=== PATIENT | male | born 1960 | race Caucasian/White ===

== ENCOUNTER 2024-02-02 23:24 | Inpatient (IN) | payer OTHER ==
[~2024-02-02] VITALS: Ht 177.8 cm; Wt 133.4 kg
[~2024-02-02 23:24] MED LIST: ALBU6.7H15 INH; AMIO100T4 PO; ASPI-1406 PO; EMPA25TA PO; FURO-151 PO; LEVE750T10 PO; LISI10TA26 PO; LOSA50TA41 PO; METO25TA6 PO; PULM50 NEB
[2024-02-02] MEDS: MORPHINE SULFATE 4 MG/ML INJ (FOR IV/IM USE) IV STA (23:30)
[2024-02-02 23:31] VITALS: RESP 36
[2024-02-02 23:58] LABS: HEMATOCRIT. 45.6 % (42.0-52.0); HEMOGLOBIN. 14.9 g/dL (14.0-18.0); MEAN CORPUSCULAR HEMOGLOBIN 28.7 pg (28.0-32.0); MEAN CORPUSCULAR HGB CONC 32.6 g/dL (31.0-37.0); MEAN CORPUSCULAR VOLUME 88.2 fL (80.0-94.0); MEAN PLATELET VOLUME 7.6 fl (7.4-10.4); PLATELET 245 x1000/uL (130-400); RED BLOOD CELL COUNT 5.17 mill/uL (4.7-6.1); RED CELL DISTRIBUTION WIDTH 18.8 % (11.6-14.6); WHITE BLOOD COUNT 20.2 x1000/uL (4.5-11.0)
[2024-02-03] VITALS (59 sets, daily range): BP systolic 80–159; BP diastolic 51–138; PULSE 113–128; RESP 16–36; TEMP 96–98; O2SAT 95
[2024-02-03 00:05] LABS: DIFFERENTIAL COMMENT 1
[2024-02-03 00:07] LABS: CHLORIDE 93 mEq/L (98-107); POTASSIUM 5.3 mEq/L (3.5-5.1); SODIUM 121 mEq/L (136-145)
[2024-02-03 00:08] LABS: CARBON DIOXIDE 16 mEq/L (21-32)
[2024-02-03 00:11] LABS: INR 1.8; PROTHROMBIN TIME 19.7 sec (9.6-11.0)
[2024-02-03] MEDS: SODIUM CHLORIDE 0.9% 500 ML IV ONE (00:11)
[2024-02-03] MEDS: ONDANSETRON HCL 4MG/2ML INJ IV STA (00:12)
[2024-02-03 00:13] LABS: CREATININE 1.8 mg/dL (0.6-1.3); GLUCOSE 86 mg/dL (70-105); UREA NITROGEN BLOOD 29 mg/dL (9-23)
[2024-02-03 00:19] LABS: LACTIC ACID 6.6 mmol/L (0.4-2.0)
[2024-02-03 00:20] LABS: TROPONIN I HIGH SENSITIVITY 100 ng/L (3.0-53)
[2024-02-03] MEDS: NOREPINEPHRINE 8MG/250ML PMX 250 ML IV STA (00:54)
[2024-02-03] MEDS: PIPERACILLIN/TAZO 3.375G/50ML 50 ML IV NR (00:55)
[2024-02-03] MEDS: VANCOMYCIN 1G PREMIX 200 ML IV NR (01:01)
[2024-02-03 03:27] LABS: TROPONIN I HIGH SENSITIVITY 91 ng/L (3.0-53)
[2024-02-03 03:49] LABS: NUCLEATED RED BLOOD CELLS 1 /100 WBC; PLATELET ESTIMATE NORMAL
[2024-02-03] MEDS ORDERED: NOREPINEPHRINE 8MG/250ML PMX 250 ML IV ONE (04:45)
[2024-02-03 09:44] LABS: HEMATOCRIT. 50.9 % (42.0-52.0); HEMOGLOBIN. 16.1 g/dL (14.0-18.0); MEAN CORPUSCULAR HEMOGLOBIN 28.3 pg (28.0-32.0); MEAN CORPUSCULAR HGB CONC 31.6 g/dL (31.0-37.0); MEAN CORPUSCULAR VOLUME 89.5 fL (80.0-94.0); MEAN PLATELET VOLUME 7.5 fl (7.4-10.4); PLATELET 191 x1000/uL (130-400); RED BLOOD CELL COUNT 5.69 mill/uL (4.7-6.1); RED CELL DISTRIBUTION WIDTH 19.3 % (11.6-14.6); WHITE BLOOD COUNT 25.7 x1000/uL (4.5-11.0)
[2024-02-03] MEDS: NOREPINEPHRINE 8MG/250ML PMX 250 ML IV PRN (09:44)
[2024-02-03 09:46] LABS: DIFFERENTIAL COMMENT 1
[2024-02-03 10:57] LABS: BG BASE EXCESS -15.4 mmol/L (-2.0-2.0); BG CARBOXYHEMOGLOBIN 0.5 % (0.5-1.5); BG DEOXYHEMOGLOBIN 0.5 % (0.0-5.0); BG FRACTION INSPIRED OXYGEN 50; BG HCO3 ACT 8.5 mmol/L (22.0-26.0); BG METHEMOGLOBIN 0.3 % (0.0-1.5); BG OXYGEN SATURATION 99.5 % (92.0-98.5); BG OXYHEMOGLOBIN 98.7 % (94.0-97.0); BG PCO2 18.7 mmHg (35.0-45.0); BG PH 7.277 (7.350-7.450); BG PO2 196.2 mmHg (75.0-100.0); BG SAMPLE SITE LEFT BRACHIAL; BG TOTAL HEMOGLOBIN 16.7 g/dL (12.0-18.0); BG VENT MODE MASK - BIPAP
[2024-02-03] MEDS ORDERED: SODIUM POLYSTYRENE SULFONATE 15 G/60 ML BOT PO ONE (11:15)
[2024-02-03 11:18] LABS: ANISOCYTOSIS 2+; PLATELET ESTIMATE NORMAL
[2024-02-03] MEDS: FUROSEMIDE 40MG/4ML VIAL IVP SCH (11:30)
[2024-02-03] MEDS: SODIUM BICARBONATE 8.4% 50MEQ/50ML SYR IV NR ×2 (11:31→15:55)
[2024-02-03] MEDS ORDERED: ONDANSETRON HCL 4MG/2ML INJ IV PRN (11:45)
[2024-02-03] MEDS ORDERED: CLONIDINE 0.1MG TABLET PO PRN (11:45)
[2024-02-03] MEDS ORDERED: DOCUSATE SODIUM 100MG CAPSULE PO PRN (11:45)
[2024-02-03] MEDS: SODIUM ZIRCONIUM CYCLOSILICATE 10GM/PACKET PO NR (12:00)
[2024-02-03] MEDS ORDERED: SODIUM CHLORIDE 0.9% 250 ML IV NR (12:00)
[2024-02-03] MEDS: INSULIN LISPRO 100 UNITS/ML SUBCUT SCH (12:22)
[2024-02-03] MEDS: BLOOD SUGAR DIAGNOSTIC STRIP TEST SCH (12:38)
[2024-02-03] MEDS: DEXTROSE 50% WATER 50ML SYRINGE IV PRN (12:56)
[2024-02-03] MEDS: PIPERACILLIN/TAZO 3.375G/50ML 50 ML IV SCH (13:33)
[2024-02-03] MEDS: MAGNESIUM 2 G PREMIX 50 ML IV SCH (14:42)
[2024-02-03] MEDS ORDERED: SODIUM BICARBONATE 8.4% 50MEQ/50ML SYR IV NR (14:45)
[2024-02-03 15:17] LABS: T4 FREE 1.19 ng/dL (0.89-1.76)
[2024-02-03 15:18] LABS: THYROID STIMULATING HORMONE 7.07 uIU/mL (0.55-4.78)
[2024-02-03 15:48] LABS: CHLORIDE 93 mEq/L (98-107); POTASSIUM 5.3 mEq/L (3.5-5.1); SODIUM 122 mEq/L (136-145)
[2024-02-03 15:49] LABS: CARBON DIOXIDE 12 mEq/L (21-32)
[2024-02-03 15:50] LABS: CALCIUM 8.7 mg/dL (8.7-10.4)
[2024-02-03 15:54] LABS: GLUCOSE 71 mg/dL (70-105)
[2024-02-03 15:55] LABS: UREA NITROGEN BLOOD 28 mg/dL (9-23)
[2024-02-03] MEDS: METHYLPREDNISOLONE SOD SUCC 40MG/ML (ACT-O-VIAL) IV SCH (15:55)
[2024-02-03] MEDS: ALBUMIN HUMAN 25GM/100ML (25%) IV NR (15:55)
[2024-02-03 15:56] LABS: ALANINE AMINOTRANSFERASE 47 IU/L (10-49); ALBUMIN 2.7 g/dL (3.2-4.8); ASPARTATE AMINOTRANSFERASE 109 IU/L (<34)
[2024-02-03 15:57] LABS: BILIRUBIN TOTAL 3.4 mg/dL (0.1-1.0); PHOSPHORUS 6.4 mg/dL (2.5-4.9); PROTEIN TOTAL 5.7 g/dL (6.0-8.3)
[2024-02-03 15:59] LABS: TROPONIN I HIGH SENSITIVITY 71 ng/L (3.0-53)
[2024-02-03 19:21] LABS: CLARITY URINE CLEAR (CLEAR); COLOR URINE YELLOW (YELLOW); GLUCOSE URINE 1+ (NEGATIVE); KETONES URINE NEGATIVE (NEGATIVE); LEUKOCYTE ESTERASE URINE NEGATIVE (NEGATIVE); NITRITE URINE NEGATIVE (NEGATIVE); OCCULT BLOOD URINE 1+ (NEGATIVE); PROTEIN URINE NEGATIVE (NEGATIVE); SPECIFIC GRAVITY URINE 1.008 (1.005-1.030); UROBILINOGEN URINE 0.2 E.U./dL (0.2-1.0)
[2024-02-03 19:38] LABS: *AMPHETAMINES SCREEN URINE PRESUMPTIVE POSITIVE (NEGATIVE); *BARBITURATES SCREEN URINE NEGATIVE (NEGATIVE); *BENZODIAZEPINES SCREEN URINE NEGATIVE (NEGATIVE)
[2024-02-03 19:39] LABS: *COCAINE SCREEN URINE NEGATIVE (NEGATIVE); CANNABINOID URINE SCREEN NEGATIVE (NEGATIVE); METHADONE URINE SCREEN NEGATIVE (NEGATIVE); OPIATES URINE SCREEN PRESUMPTIVE POSITIVE (NEGATIVE); PHENCYCLIDINE URINE SCREEN NEGATIVE (NEGATIVE)
[2024-02-03 19:43] LABS: BACTERIA URINE NONE SEEN; RBC URINE 0-2 /hpf (0-2); SQUAMOUS EPITHELIAL CELL URINE RARE /lpf (RARE/1+); WBC URINE NONE SEEN /hpf (0-2)
[2024-02-03] MEDS: ACETAMINOPHEN 325MG TABLET PO PRN (19:53)
[2024-02-03] MEDS: DOXYCYCLINE HYCLATE 100MG CAPSULE PO SCH (20:40)
[2024-02-03] MEDS: GUAIFENESIN 600MG ER TABLET PO SCH (21:06)
[2024-02-03] MEDS: IPRATROPIUM/ALBUTEROL 0.5-3(2.5)MG/3ML NEB HHN SCH (21:07)
[2024-02-03] MEDS: ACETYLCYSTEINE 200MG/ML 20% VIAL 4ML INH SCH (22:00)
[2024-02-03] MEDS: METHYLPREDNISOLONE SOD SUCC 125MG/2ML (ACT-O-VIAL) IV SCH (22:06)
[2024-02-03 22:29] LABS: CREATINE KINASE MB FRACTION 13.5 ng/mL (0.5-3.6)
[2024-02-03] MEDS: ZOLPIDEM TARTRATE 5MG TABLET PO PRN (22:40)
[2024-02-04] VITALS (101 sets, daily range): BP systolic 66–124; BP diastolic 30–89; PULSE 0–124; RESP 0–30; TEMP 97.8–98.8; O2SAT 95–98
[2024-02-04] MEDS: VANCOMYCIN 750MG/150ML (BAXTER) IV SCH (01:29)
[2024-02-04 05:11] LABS: HEMATOCRIT. 46.5 % (42.0-52.0); HEMOGLOBIN. 15.4 g/dL (14.0-18.0); MEAN CORPUSCULAR HEMOGLOBIN 27.9 pg (28.0-32.0); MEAN CORPUSCULAR HGB CONC 33.2 g/dL (31.0-37.0); MEAN CORPUSCULAR VOLUME 84.1 fL (80.0-94.0); MEAN PLATELET VOLUME 7.8 fl (7.4-10.4); PLATELET 164 x1000/uL (130-400); RED BLOOD CELL COUNT 5.53 mill/uL (4.7-6.1); RED CELL DISTRIBUTION WIDTH 18.5 % (11.6-14.6)
[2024-02-04 05:25] LABS: CARBON DIOXIDE 19 mEq/L (21-32); CHLORIDE 95 mEq/L (98-107); POTASSIUM 4.8 mEq/L (3.5-5.1); SODIUM 126 mEq/L (136-145)
[2024-02-04 05:26] LABS: CALCIUM 8.4 mg/dL (8.7-10.4)
[2024-02-04 05:31] LABS: CREATININE 1.7 mg/dL (0.6-1.3); GLUCOSE 140 mg/dL (70-105); UREA NITROGEN BLOOD 31 mg/dL (9-23)
[2024-02-04 05:32] LABS: ALANINE AMINOTRANSFERASE 48 IU/L (10-49); ASPARTATE AMINOTRANSFERASE 120 IU/L (<34)
[2024-02-04 05:33] LABS: ALBUMIN 2.5 g/dL (3.2-4.8); BILIRUBIN DIRECT 2.8 mg/dL (<=3.0); BILIRUBIN TOTAL 3.8 mg/dL (0.1-1.0); PHOSPHORUS 4.8 mg/dL (2.5-4.9); PROTEIN TOTAL 4.9 g/dL (6.0-8.3)
[2024-02-04 05:38] LABS: INR 2.1
[2024-02-04 07:07] LABS: DIFFERENTIAL COMMENT 1
[2024-02-04] MEDS ORDERED: LIDOCAINE HCL 1% 10 MG/ML 10ML VIAL ONE (07:19)
[2024-02-04] MEDS: LORAZEPAM 2MG/ML INJ IV NR (07:42)
[2024-02-04] MEDS ORDERED: HEPARIN 5000 UNITS/ML VIAL IV SCH (08:00)
[2024-02-04] MEDS ORDERED: HEPARIN 5000 UNITS/ML VIAL IV PRN ×2 (08:00)
[2024-02-04 08:19] LABS: PARTIAL THROMBOPLASTIN TIME 39.2 sec (23.4-31.0)
[2024-02-04] MEDS: DEXMEDETOMIDINE 400 MCG/100 ML 100 ML IV PRN (08:26)
[2024-02-04] MEDS: HEPARIN 25,000 UNITS PREMIX 250 ML IV SCH (09:54)
[2024-02-04 12:07] LABS: ANISOCYTOSIS 2+; PLATELET ESTIMATE NORMAL
[2024-02-04] MEDS: CHLORHEXIDINE GLUCONATE 4% EXTERNAL USE TOP SCH (13:54)
[2024-02-04] MEDS: NOREPINEPHRINE 8MG/250ML PMX 250 ML IV PRN (20:53)
[2024-02-04] MEDS: VANCOMYCIN 1GM/200ML PMX (BAXTER) IV SCH (22:14)
[2024-02-05] VITALS (103 sets, daily range): BP systolic 83–150; BP diastolic 39–101; PULSE 99–140; RESP 16–37; TEMP 98.5–100.8; O2SAT 96
[2024-02-05 05:38] LABS: CREATININE 1.7 mg/dL (0.6-1.3)
[2024-02-05 10:51] LABS: INR 1.4; PROTHROMBIN TIME 15.4 sec (9.6-11.0)
[2024-02-05 14:11] LABS: HEMATOCRIT 46.7 % (42.0-52.0); HEMOGLOBIN 14.8 g/dL (14.0-18.0); MEAN CORPUSCULAR HEMOGLOBIN 27.4 pg (28.0-32.0); MEAN CORPUSCULAR HGB CONC 31.7 g/dL (31.0-37.0); MEAN CORPUSCULAR VOLUME 86.3 fL (80.0-94.0); PLATELET 103 x1000/uL (130-400); RED BLOOD CELL COUNT 5.41 mill/uL (4.7-6.1); RED CELL DISTRIBUTION WIDTH 18.4 % (11.6-14.6)
[2024-02-05] MEDS: METHYLPREDNISOLONE SOD SUCC 40MG/ML (ACT-O-VIAL) IV SCH (14:40)
[2024-02-05] MEDS: PHENYLEPHRINE 100 MG in DEXT 5% WATER 240 ML IV PRN (17:21)
[2024-02-05] MEDS: ENOXAPARIN 30MG/0.3ML SYR SUBCUT SCH (21:30)
[2024-02-05] MEDS: VANCOMYCIN 1.25GM PMX (XELLIA) 250 ML IV SCH (21:31)
[2024-02-05] MEDS: LORAZEPAM 2MG/ML INJ IV PRN (22:00)
[2024-02-06] VITALS (110 sets, daily range): BP systolic 73–116; BP diastolic 24–92; PULSE 96–177; RESP 15–44; TEMP 98–99.1; O2SAT 93–98
[2024-02-06 05:01] LABS: ALBUMIN 2.4 g/dL (3.2-4.8)
[2024-02-06 05:07] LABS: PREALBUMIN < 5.0 mg/dl (10.0-40.0)
[2024-02-06] MEDS ORDERED: SODIUM CHLORIDE 0.9% 1,000 ML IV SCH ×2 (06:11→06:15)
[2024-02-06] MEDS: DILTIAZEM HCL 5MG/ML 5ML VIAL IV NR (06:15)
[2024-02-06] MEDS: SODIUM CHLORIDE 0.9% 500 ML IV ONE (06:26)
[2024-02-06] MEDS ORDERED: LIDOCAINE HCL 1% 10 MG/ML 10ML VIAL ONE (09:18)
[2024-02-06 11:33] LABS: HEMATOCRIT 44.1 % (42.0-52.0); HEMOGLOBIN 13.5 g/dL (14.0-18.0); MEAN CORPUSCULAR HGB CONC 30.6 g/dL (31.0-37.0); MEAN CORPUSCULAR VOLUME 88.3 fL (80.0-94.0); PLATELET 82 x1000/uL (130-400); RED BLOOD CELL COUNT 4.99 mill/uL (4.7-6.1); RED CELL DISTRIBUTION WIDTH 18.9 % (11.6-14.6); WHITE BLOOD COUNT 18.7 x1000/uL (4.5-11.0)
[2024-02-06 11:44] LABS: CHLORIDE 98 mEq/L (98-107); POTASSIUM 4.7 mEq/L (3.5-5.1); SODIUM 130 mEq/L (136-145)
[2024-02-06 11:45] LABS: CALCIUM 8.6 mg/dL (8.7-10.4); CARBON DIOXIDE 21 mEq/L (21-32)
[2024-02-06] MEDS ORDERED: FURO40TA5 PO (11:47)
[2024-02-06] MEDS ORDERED: ATOR20TA65 PO (11:47)
[2024-02-06] MEDS ORDERED: CARV6.2548 PO (11:47)
[2024-02-06] MEDS ORDERED: APIX5TAB PO (11:47)
[2024-02-06] MEDS ORDERED: CLOP75TA33 PO (11:47)
[2024-02-06] MEDS ORDERED: FLUO40CA49 PO (11:47)
[2024-02-06] MEDS ORDERED: METO2.5T2 PO (11:47)
[2024-02-06] MEDS ORDERED: PALI156D IM (11:47)
[2024-02-06 11:50] LABS: CREATININE 1.9 mg/dL (0.6-1.3); GLUCOSE 235 mg/dL (70-105); UREA NITROGEN BLOOD 48 mg/dL (9-23)
[2024-02-06 11:53] LABS: PHOSPHORUS 4.1 mg/dL (2.5-4.9)
[2024-02-06] MEDS: DOXYCYCLINE 100MG/100ML 100 ML IV SCH (17:19)
[2024-02-06] MEDS: METHYLPREDNISOLONE SOD SUCC 40MG/ML (ACT-O-VIAL) IV SCH (21:19)
[2024-02-06] MEDS: CEFEPIME 2GM/100ML 100 ML IV SCH (21:20)
[2024-02-06] MEDS: MORPHINE SULFATE 4 MG/ML INJ (FOR IV/IM USE) IV PRN (23:55)
[2024-02-07] VITALS (87 sets, daily range): BP systolic 54–113; BP diastolic 37–92; PULSE 98–140; RESP 13–41; TEMP 98.8–103; O2SAT 95–98
[2024-02-07 05:46] LABS: CALCIUM 8.3 mg/dL (8.7-10.4); HEMATOCRIT 42.5 % (42.0-52.0); HEMOGLOBIN 13.4 g/dL (14.0-18.0); MEAN CORPUSCULAR HEMOGLOBIN 27.4 pg (28.0-32.0); MEAN CORPUSCULAR HGB CONC 31.6 g/dL (31.0-37.0); MEAN CORPUSCULAR VOLUME 86.7 fL (80.0-94.0); PLATELET 77 x1000/uL (130-400); RED CELL DISTRIBUTION WIDTH 18.8 % (11.6-14.6); WHITE BLOOD COUNT 8.8 x1000/uL (4.5-11.0)
[2024-02-07] MEDS ORDERED: IPRATROPIUM/ALBUTEROL 0.5-3(2.5)MG/3ML NEB HHN PRN (11:00)
[2024-02-07] MEDS ORDERED: NALOXONE HCL 0.4MG/ML VIAL IV PRN (11:00)
[2024-02-07] MEDS: AMIODARONE HCL 900 MG in DEXT 5% WATER 482 ML IV SCH (16:32)
[2024-02-07] MEDS: ACETAMINOPHEN 325MG TABLET PO PRN (18:03)
[2024-02-07] MEDS: CEFEPIME 2GM/100ML 100 ML IV SCH (18:04)
[2024-02-07] MEDS: VASOPRESSIN 20 UNIT in SODIUM CHLORIDE 0.9% 99 ML IV PRN (20:46)
[2024-02-07] MEDS: NOREPINEPHRINE 32 MG in DEXT 5% WATER 218 ML IV PRN (22:06)
[2024-02-07] MEDS: MEROPENEM 1G/100ML 100 ML IV SCH (22:20)
[2024-02-08] VITALS (30 sets, daily range): BP systolic 37–88; BP diastolic 14–73; PULSE 51–100; RESP 15–106; TEMP 98.9–100.5
[2024-02-08] MEDS ORDERED: AMIODARONE HCL 50MG/ML 3ML VIAL IV ONE (00:01)
[2024-02-08] MEDS: EPINEPHRINE 10 MG in SODIUM CHLORIDE 0.9% 240 ML IV PRN (00:34)
[2024-02-08] MEDS ORDERED: CALCIUM CHLORIDE 1GM/10ML SYR IV ONE (05:00)
[2024-02-08 05:50] LABS: CHLORIDE 98 mEq/L (98-107); SODIUM 129 mEq/L (136-145)
[2024-02-08 05:52] LABS: CARBON DIOXIDE < 10 mEq/L (21-32); POTASSIUM 6.5 mEq/L (3.5-5.1)
[2024-02-08 05:56] LABS: GLUCOSE 130 mg/dL (70-105); UREA NITROGEN BLOOD 75 mg/dL (9-23)
[2024-02-08 06:00] LABS: CREATININE 3.3 mg/dL (0.6-1.3)
[2024-02-08 06:46] LABS: HEMATOCRIT. 53.6 % (42.0-52.0); HEMOGLOBIN. 14.3 g/dL (14.0-18.0); MEAN CORPUSCULAR HEMOGLOBIN 27.5 pg (28.0-32.0); MEAN CORPUSCULAR HGB CONC 26.7 g/dL (31.0-37.0); MEAN PLATELET VOLUME 11.8 fl (7.4-10.4); PLATELET 60 x1000/uL (130-400); RED CELL DISTRIBUTION WIDTH 20.8 % (11.6-14.6); WHITE BLOOD COUNT 21.6 x1000/uL (4.5-11.0)
[2024-02-08 07:03] LABS: DIFFERENTIAL COMMENT 1
[2024-02-08 16:39] LABS: ANISOCYTOSIS 2+; NUCLEATED RED BLOOD CELLS 25 /100 WBC; PLATELET ESTIMATE MARKEDLY DECREASED
== END 2024-02-08 05:18 | DRG 720 ==
LOC: ER 23:24 → MICUNO 02-03 01:42 → EDBEDREQ 02-03 02:09 → EDBEDREQTM 02-03 02:09 → MICUNO 02-03 14:41 → CVICU 02-07 12:18
PROVIDERS: ADMIT Internal Medicine; ATTEND Internal Medicine
PROC: 5A09357 Assistance with Respiratory Ventilation, Less than 24 Consecutive Hours, Continuous Positive Airway Pressure (ICD-10-PCS; principal; 2024-02-02)
PROC: 02HV33Z Insertion of Infusion Device into Superior Vena Cava, Percutaneous Approach (ICD-10-PCS; 2024-02-04)
PROC: B54MZZA Ultrasonography of Right Upper Extremity Veins, Guidance (ICD-10-PCS; 2024-02-04)
PROC: 5A0935A Assistance with Respiratory Ventilation, Less than 24 Consecutive Hours, High Flow/Velocity Cannula (ICD-10-PCS; 2024-02-04)
PROC: B548ZZA Ultrasonography of Superior Vena Cava, Guidance (ICD-10-PCS; 2024-02-04)
PROC: 05HM33Z Insertion of Infusion Device into Right Internal Jugular Vein, Percutaneous Approach (ICD-10-PCS; 2024-02-06)
PROC: B543ZZA Ultrasonography of Right Jugular Veins, Guidance (ICD-10-PCS; 2024-02-06)
PROC: 0BH17EZ Insertion of Endotracheal Airway into Trachea, Via Natural or Artificial Opening (ICD-10-PCS; 2024-02-08)
PROC: 5A12012 Performance of Cardiac Output, Single, Manual (ICD-10-PCS; 2024-02-08)
PROC: 5A09357 Assistance with Respiratory Ventilation, Less than 24 Consecutive Hours, Continuous Positive Airway Pressure (ICD-10-PCS; 2024-02-08)
DX: A40.8 Other streptococcal sepsis (principal); J96.01 Acute respiratory failure with hypoxia; R65.21 Severe sepsis with septic shock; I50.23 Acute on chronic systolic (congestive) heart failure; J15.69 Pneumonia due to other Gram-negative bacteria; E87.20 Acidosis, unspecified; I13.0 Hypertensive heart and chronic kidney disease with heart failure and stage 1 through stage 4 chronic kidney disease, or unspecified chronic kidney disease; E87.1 Hypo-osmolality and hyponatremia; E88.09 Other disorders of plasma-protein metabolism, not elsewhere classified; I27.20 Pulmonary hypertension, unspecified; Z20.822 Contact with and (suspected) exposure to COVID-19; N17.9 Acute kidney failure, unspecified; L03.116 Cellulitis of left lower limb; L03.115 Cellulitis of right lower limb; E87.5 Hyperkalemia; E83.42 Hypomagnesemia; F15.10 Other stimulant abuse, uncomplicated; E16.2 Hypoglycemia, unspecified; I48.0 Paroxysmal atrial fibrillation; I48.92 Unspecified atrial flutter; B19.20 Unspecified viral hepatitis C without hepatic coma; I25.10 Atherosclerotic heart disease of native coronary artery without angina pectoris; Z68.41 Body mass index [BMI] 40.0-44.9, adult; R73.9 Hyperglycemia, unspecified; L97.318 Non-pressure chronic ulcer of right ankle with other specified severity; L97.828 Non-pressure chronic ulcer of other part of left lower leg with other specified severity; I73.9 Peripheral vascular disease, unspecified; N18.9 Chronic kidney disease, unspecified; I47.10 Supraventricular tachycardia, unspecified; F29 Unspecified psychosis not due to a substance or known physiological condition; I25.2 Old myocardial infarction; Z88.6 Allergy status to analgesic agent; Z95.1 Presence of aortocoronary bypass graft; Z95.5 Presence of coronary angioplasty implant and graft; Z95.810 Presence of automatic (implantable) cardiac defibrillator; E66.01 Morbid (severe) obesity due to excess calories
CPT/HCPCS: 36415; 36573; 36600; 71045; 76604; 77001; 78580; 80048; 80053; 80076; 80202; 80305; 81003; 82040; 82375; 82550; 82553; 82803; 82805; 82947; 82962; 83605; 83735; 83880; 84100; 84134; 84145; 84439; 84443; 84480; 84484; 85025; 85027; 85379; 85651; 87070; 87077; 87186; 87426; 93005; 93306; 93923; 93970; 94640; 94660; 99291; A6261; C1725; C1769; J0282; J0692; J1644; J1650; J1815; J1940; J2060; J2185; J2270; J2405; J2543; J2919; J2920; J3370; J3475; J3490; J7040; J7050; J7060; J7608; P9047; Q9957